=== PATIENT | male | born 1990 | race African-American/Black ===

== ENCOUNTER 2017-08-15 19:08 | Emergency (ER) | payer SELFPAY ==
[~2017-08-15] VITALS: Ht 177.8 cm; Wt 100.0 kg
[2017-08-15] MEDS ORDERED: ALBU8HFA IH (19:34)
[2017-08-15] MEDS ORDERED: CYCLOBENZAPRINE HCL 10 MG TABLET PO ONE (22:15)
[2017-08-15] MEDS ORDERED: IBUPROFEN 800 MG TABLET PO ONE (22:15)
[2017-08-15 22:42] VITALS: BP 138/85
== END 2017-08-15 22:45 | disposition home or self-care (01) ==
LOC: EMS 19:11
DX: M79.631 Pain in right forearm (principal); M25.561 Pain in right knee; J45.909 Unspecified asthma, uncomplicated; V49.88XA Car occupant (driver) (passenger) injured in other specified transport accidents, initial encounter; Y93.89 Activity, other specified; Y92.89 Other specified places as the place of occurrence of the external cause; Y99.8 Other external cause status
CPT/HCPCS: 99283

== ENCOUNTER 2017-08-27 08:13 | Emergency (ER) | payer SELFPAY ==
[~2017-08-27] VITALS: Ht 177.8 cm; Wt 100.0 kg
[~2017-08-27 08:13] MED LIST: ALBU8HFA IH
[2017-08-27 09:27] VITALS: BP 140/66
== END 2017-08-27 09:32 | disposition home or self-care (01) ==
LOC: EMS 08:14
DX: M54.5 Low back pain (principal); M54.2 Cervicalgia; J45.909 Unspecified asthma, uncomplicated
CPT/HCPCS: 99281

== ENCOUNTER 2017-11-03 08:25 | Emergency (ER) | payer BC ==
[~2017-11-03] VITALS: Ht 177.8 cm; Wt 104.5 kg
[2017-11-03 09:00] VITALS: BP 156/94
[2017-11-03] MEDS ORDERED: IBUPROFEN 600 MG TABLET PO ONE (10:00)
== END 2017-11-03 10:03 | disposition home or self-care (01) ==
LOC: EMS 08:27
DX: H60.91 Unspecified otitis externa, right ear (principal); J45.909 Unspecified asthma, uncomplicated
CPT/HCPCS: 99283